=== PATIENT | male | born 1965 | race Caucasian/White ===

== ENCOUNTER 2022-05-21 07:08 | Day surgery (SDC) | payer OTHER ==
[2022-05-18 10:40] VITALS: BMI 29.8
[2022-05-21] MEDS ORDERED: PROPOFOL 40 ML ONE (09:34)
[2022-05-21] MEDS ORDERED: Lidocaine 1% PF 5 ML VIAL ONE (09:35)
== END 2022-05-21 10:55 | disposition home or self-care (01) ==
LOC: CSHSDC 07:08
PROVIDERS: ATTEND Internal Medicine Gastroenterology
PROC: 0DJD8ZZ Inspection of Lower Intestinal Tract, Via Natural or Artificial Opening Endoscopic (ICD-10-PCS; principal; 2022-05-21)
DX: Z12.11 Encounter for screening for malignant neoplasm of colon (principal); K57.30 Diverticulosis of large intestine without perforation or abscess without bleeding; K64.9 Unspecified hemorrhoids; F90.9 Attention-deficit hyperactivity disorder, unspecified type; Z83.71 Family history of colonic polyps
CPT/HCPCS: J2704

== ENCOUNTER 2023-11-17 07:48 | Observation (INO) | payer OTHER ==
[2023-11-17 14:46] VITALS: BMI 31.8
[2023-11-19 12:30] VITALS: BP 132/77; TEMP 98.6
== END 2023-11-19 14:10 | disposition home or self-care (01) ==
LOC: CSHERS 07:48 → SUATTDRO 07:48 → CSHTELE 09:38
PROVIDERS: ADMIT Family Medicine; ATTEND Emergency Medicine
DX: R07.81 Pleurodynia (principal); R07.2 Precordial pain; Z91.048 Other nonmedicinal substance allergy status; F90.9 Attention-deficit hyperactivity disorder, unspecified type; Z79.899 Other long term (current) drug therapy
CPT/HCPCS: 36415; 71045; 71275; 74176; 80048; 80053; 82550; 83605; 83690; 83735; 83880; 84145; 84443; 84484; 85025; 85379; 86140; 87040; 93005; 93010; 93306; 94760; 96372; 96374; 96375; 96376; G0378; J1650; J2272; J2920; J7050; J7620; Q9967